=== PATIENT | female | born 2000 | race Asian ===

== ENCOUNTER 2024-08-01 21:22 | Emergency (ER) | payer OTHER ==
[~2024-08-01] VITALS: Ht 152.4 cm; Wt 52.2 kg
[2024-08-01 21:24] VITALS: O2SAT 99
[2024-08-01] MEDS ORDERED: NADO40TA2 PO ×2 (21:32→22:11)
== END 2024-08-01 22:20 | disposition home or self-care (01) ==
LOC: ER 21:35
DX: I45.81 Long QT syndrome (principal); Z76.0 Encounter for issue of repeat prescription; F17.200 Nicotine dependence, unspecified, uncomplicated; Z79.899 Other long term (current) drug therapy
CPT/HCPCS: 93005; A4606; A4663